=== PATIENT | female | born 1965 | race African-American/Black ===

== ENCOUNTER 2018-07-08 08:11 | Inpatient (IN) | payer MEDICAID, OTHER ==
[~2018-07-08] VITALS: Ht 170.2 cm; Wt 68.9 kg
[2018-07-08] MEDS ORDERED: ONDANSETRON HCL 4MG/2ML INJ IV STA (08:37)
[2018-07-08] MEDS ORDERED: SODIUM CHLORIDE 0.9% 1,000 ML IV ONE (08:37)
[2018-07-08] MEDS ORDERED: FENTANYL CITRATE/PF 50MCG/ML 2ML VIAL IV ONE (08:45)
[2018-07-08 09:20] LABS: CHLORIDE 104 mEq/L (98-107)
[2018-07-08 09:21] LABS: BASOPHILS % 0.5 % (0.0-2.0); HEMATOCRIT. 38.7 % (36.0-48.0); HEMOGLOBIN. 12.7 g/dL (12.0-16.0); LYMPHOCYTES % 11.5 % (20.0-50.0); MEAN CORPUSCULAR HEMOGLOBIN 29.9 pg (28.0-32.0); MEAN CORPUSCULAR VOLUME 90.8 fL (81.0-99.0); MEAN PLATELET VOLUME 9.4 fl (7.4-10.4); MONOCYTES % 1.5 % (2.0-8.0); NEUTROPHILS % 86.5 % (40.0-76.0); PLATELET 227 x1000/uL (130-400); RED BLOOD CELL COUNT 4.26 mill/uL (4.2-5.4); RED CELL DISTRIBUTION WIDTH 14.4 % (11.6-14.6)
[2018-07-08 11:02] LABS: CLARITY URINE CLOUDY (CLEAR); COLOR URINE YELLOW (YELLOW); KETONES URINE TRACE (NEGATIVE); LEUKOCYTE ESTERASE URINE NEGATIVE (NEGATIVE); NITRITE URINE NEGATIVE (NEGATIVE); OCCULT BLOOD URINE NEGATIVE (NEGATIVE); PH URINE >=9.0 (4.5-8.0); PROTEIN URINE TRACE (NEGATIVE); SPECIFIC GRAVITY URINE 1.024 (1.005-1.030); UROBILINOGEN URINE 0.2 E.U./dL (0.2-1.0)
[2018-07-08 16:00] VITALS: BP 113/54
[2018-07-08] MEDS ORDERED: ACETAMINOPHEN 325MG TABLET PO PRN (17:30)
[2018-07-08] MEDS ORDERED: MAGNESIUM/ALUMINUM HYDROXIDE/SIMETHICONE 30ML UDC PO PRN (17:30)
[2018-07-08] MEDS ORDERED: CLONIDINE 0.1MG TABLET PO PRN (17:30)
[2018-07-08 17:43] VITALS: BP 113/54
[2018-07-08 20:00] VITALS: BP 116/56
[2018-07-08] MEDS: ONDANSETRON HCL 4MG/2ML INJ IV PRN (20:18)
[2018-07-08] MEDS: ENOXAPARIN 40MG/0.4ML SYR SUBCUT SCH (20:53)
[2018-07-08] MEDS: SODIUM CHLORIDE 0.9% 1,000 ML IV SCH (20:59)
[2018-07-09] VITALS: BP 123/69
[2018-07-09] MEDS ORDERED: ACETAMINOPHEN 650MG SUPP PR PRN
[2018-07-09] MEDS: ONDANSETRON HCL 4MG/2ML INJ IV PRN ×3 (03:00→20:12)
[2018-07-09] MEDS: HYDROMORPHONE HCL/PF 2MG/ML CPJ IV PRN ×4 (03:03→18:33)
[2018-07-09 04:00] VITALS: BP 123/69
[2018-07-09] MEDS: SODIUM CHLORIDE 0.9% 1,000 ML IV SCH (07:32)
[2018-07-09 07:52] LABS: BASOPHILS % 0.4 % (0.0-2.0); HEMATOCRIT. 39.9 % (36.0-48.0); LYMPHOCYTES % 26.4 % (20.0-50.0); MEAN CORPUSCULAR HEMOGLOBIN 29.8 pg (28.0-32.0); MEAN CORPUSCULAR VOLUME 91.4 fL (81.0-99.0); MEAN PLATELET VOLUME 10.2 fl (7.4-10.4); MONOCYTES % 5.4 % (2.0-8.0); NEUTROPHILS % 67.8 % (40.0-76.0); PLATELET 201 x1000/uL (130-400); RED BLOOD CELL COUNT 4.36 mill/uL (4.2-5.4); RED CELL DISTRIBUTION WIDTH 14.5 % (11.6-14.6)
[2018-07-09 08:00] VITALS: BP 102/63
[2018-07-09 08:33] LABS: CHLORIDE 105 mEq/L (98-107)
[2018-07-09 12:00] VITALS: BP 105/57
[2018-07-09] MEDS ORDERED: HYDROMORPHONE HCL/PF 2MG/ML CPJ IV PRN (18:30)
[2018-07-09] MEDS: ENOXAPARIN 40MG/0.4ML SYR SUBCUT SCH (18:32)
[2018-07-09 20:00] VITALS: BP 106/69
[2018-07-10] VITALS: BP 136/78
[2018-07-10] MEDS: ONDANSETRON HCL 4MG/2ML INJ IV PRN ×2 (01:57→13:48)
[2018-07-10] MEDS: HYDROMORPHONE HCL/PF 2MG/ML CPJ IV PRN ×2 (01:58→06:46)
[2018-07-10 04:00] VITALS: BP 110/65
[2018-07-10] MEDS: SODIUM CHLORIDE 0.9% 1,000 ML IV SCH ×3 (05:09→21:24)
[2018-07-10 07:06] LABS: BASOPHILS % 0.2 % (0.0-2.0); HEMATOCRIT. 43.6 % (36.0-48.0); HEMOGLOBIN. 14.1 g/dL (12.0-16.0); LYMPHOCYTES % 8.4 % (20.0-50.0); MEAN CORPUSCULAR HEMOGLOBIN 29.6 pg (28.0-32.0); MEAN CORPUSCULAR VOLUME 91.5 fL (81.0-99.0); MEAN PLATELET VOLUME 9.5 fl (7.4-10.4); MONOCYTES % 5.7 % (2.0-8.0); NEUTROPHILS % 85.7 % (40.0-76.0); PLATELET 231 x1000/uL (130-400); RED BLOOD CELL COUNT 4.77 mill/uL (4.2-5.4); RED CELL DISTRIBUTION WIDTH 14.4 % (11.6-14.6)
[2018-07-10 07:15] LABS: CHLORIDE 103 mEq/L (98-107)
[2018-07-10 08:00] VITALS: BP 127/75
[2018-07-10 12:00] VITALS: BP 130/76
[2018-07-10] MEDS ORDERED: LORAZEPAM 2MG/ML CPJ IV NR (14:15)
[2018-07-10 16:00] VITALS: BP 128/77
[2018-07-10] MEDS: ENOXAPARIN 40MG/0.4ML SYR SUBCUT SCH (18:28)
[2018-07-10 20:00] VITALS: BP 112/63
[2018-07-11] VITALS: BP 136/73
[2018-07-11 00:34] VITALS: BP 136/73
== END 2018-07-11 01:26 | disposition short-term general hospital (02) | DRG 247 ==
LOC: ER 08:21 → 6EST 14:37 → ENRESERV 15:18 → EDBEDREQ 15:54
PROVIDERS: ADMIT Family Medicine Adult Medicine; ATTEND Family Medicine Adult Medicine
DX: K56.600 Partial intestinal obstruction, unspecified as to cause (principal); K76.89 Other specified diseases of liver; Z80.0 Family history of malignant neoplasm of digestive organs; Z90.710 Acquired absence of both cervix and uterus
CPT/HCPCS: 36415; 74018; 74176; 80048; 83735; 84100; 96374; 96375; 99285; J1170; J1650; J2405; J3010; J7030

== ENCOUNTER 2023-09-02 18:06 | Emergency (ER) | payer MEDICAID ==
[~2023-09-02] VITALS: Ht 165.1 cm; Wt 65.0 kg
[2023-09-02 18:10] VITALS: O2SAT 100
[2023-09-02] MEDS ORDERED: ONDANSETRON 4MG ODT PO STA (18:13)
[2023-09-02] MEDS ORDERED: MORPHINE SULFATE 4 MG/ML CPJ (NOT FOR IM USE) IV STA (18:13)
[2023-09-02] MEDS: SODIUM CHLORIDE 0.9% 1,000 ML IV ONE (18:15)
[2023-09-02 20:56] LABS: BASOPHILS % 0.3 % (0.0-2.0); HEMATOCRIT. 39.7 % (36.0-48.0); HEMOGLOBIN. 13.1 g/dL (12.0-16.0); LYMPHOCYTES % 16.3 % (20.0-50.0); MEAN CORPUSCULAR HEMOGLOBIN 29.5 pg (28.0-32.0); MEAN CORPUSCULAR HGB CONC 33.1 g/dL (31.0-37.0); MEAN CORPUSCULAR VOLUME 89.2 fL (81.0-99.0); MEAN PLATELET VOLUME 9.6 fl (7.4-10.4); MONOCYTES % 3.4 % (2.0-8.0); PLATELET 240 x1000/uL (130-400); RED BLOOD CELL COUNT 4.45 mill/uL (4.2-5.4); RED CELL DISTRIBUTION WIDTH 14.3 % (11.6-14.6); WHITE BLOOD COUNT 8.4 x1000/uL (4.5-11.0)
[2023-09-02 21:10] LABS: INR 0.9; PROTHROMBIN TIME 10.4 sec (9.6-11.0)
[2023-09-02 21:14] LABS: ALANINE AMINOTRANSFERASE 7 IU/L (10-49); ALBUMIN 4.9 g/dL (3.2-4.8); ASPARTATE AMINOTRANSFERASE 21 IU/L (<34); BILIRUBIN TOTAL 0.4 mg/dL (0.1-1.0); CALCIUM 9.9 mg/dL (8.7-10.4); CARBON DIOXIDE 27 mEq/L (21-32); CHLORIDE 102 mEq/L (98-107); CREATININE 0.9 mg/dL (0.6-1.0); GLUCOSE 114 mg/dL (70-105); POTASSIUM 3.9 mEq/L (3.5-5.1); PROTEIN TOTAL 8.3 g/dL (6.0-8.3); SODIUM 137 mEq/L (136-145); UREA NITROGEN BLOOD 18 mg/dL (9-23)
[2023-09-02 21:15] LABS: ETHANOL BLOOD < 10 mg/dL (<10); HCG SCREEN NEGATIVE; TROPONIN I HIGH SENSITIVITY < 4 ng/L (3.0-34)
[2023-09-02] MEDS ORDERED: ONDANSETRON HCL 4MG/2ML INJ IV ONE (22:30)
[2023-09-03] MEDS: ONDANSETRON HCL 4MG/2ML INJ IV NR (02:20)
[2023-09-03] MEDS: MORPHINE SULFATE 4 MG/ML CPJ (NOT FOR IM USE) IV NR (02:20)
[2023-09-03] MEDS: ACETAMINOPHEN 325MG TABLET PO ONE (11:11)
[2023-09-03] MEDS: ACETAMINOPHEN 325MG TABLET PO NR (11:15)
[2023-09-03] MEDS ORDERED: IPRATROPIUM/ALBUTEROL 0.5-3(2.5)MG/3ML NEB NEB PRN (11:15)
[2023-09-03] MEDS ORDERED: DEXT 5%/LACTATED RINGERS 1,000 ML IV SCH (11:15)
[2023-09-03] MEDS ORDERED: ACETAMINOPHEN 650MG SUPP PR PRN ×2 (11:15)
[2023-09-03] MEDS ORDERED: KETOROLAC 15MG/ML VIAL IV PRN (11:15)
[2023-09-03] MEDS ORDERED: NITROGLYCERIN 0.4MG TABLET SL SL PRN (11:15)
[2023-09-03] MEDS ORDERED: ONDANSETRON HCL 4MG/2ML INJ IV PRN (11:15)
[2023-09-03] MEDS ORDERED: PANTOPRAZOLE SODIUM 40 MG/VIAL IV SCH (11:30)
[2023-09-03] MEDS ORDERED: ENOXAPARIN 40MG/0.4ML SYR SUBCUT SCH (11:30)
[2023-09-03 15:52] VITALS: BP 118/67; PULSE 63; RESP 18; TEMP 99
== END 2023-09-03 16:20 | disposition left against medical advice (07) ==
LOC: ER 18:06 → CANBEDREQ 09-03 16:18 → ER 09-03 16:20
DX: K56.609 Unspecified intestinal obstruction, unspecified as to partial versus complete obstruction (principal); F12.10 Cannabis abuse, uncomplicated; Z90.710 Acquired absence of both cervix and uterus
CPT/HCPCS: 80053; 80320; 84703; 83605; 83690; 85025; 85610; 84484; 36415; 71045; 74176; 93005; 96361; 99285; 82962; 93970; 96374; 96375; J7030; J2405; J2270; G0480